=== PATIENT | male | born 1995 | race Caucasian/White ===

== ENCOUNTER 2024-01-26 20:28 | Emergency (ER) | payer OTHER, SELFPAY ==
[2024-01-26 20:44] VITALS: BP 157/82; PULSE 100; RESP 18; TEMP 37.3; O2SAT 99; BMI 42.0
[2024-01-26 21:44] LABS: Strep Grp A by PCR Rapid Positive (Negative)
[2024-01-26 22:18] VITALS: BP 137/73; PULSE 87; RESP 18; TEMP 37.6; O2SAT 98
[2024-01-26] MEDS: IBUPROFEN 400 MG TABLET 800 MG PO (22:28)
[2024-01-27 00:50] VITALS: BP 155/89; PULSE 87; RESP 20; O2SAT 97
--- NOTE | 2024-01-27 02:15 | ED.GENADULT ---
HPI - General Adult General Chief complaint: Dental/Oral Stated complaint: rt sided jaw pain, throat pain Time Seen by Provider: 01/27/24 01:30 Source: patient Mode of arrival: Ambulatory Limitations: no limitations History of Present Illness HPI narrative: 28-year-old male reports no medical issues presents with complaint of sore throat, some cough with postnasal drip, and subjective fevers for the past several days. Patient states no chest pain no shortness of breath no nausea or vomiting. Patient states allergic to tetracycline. Denies any daily prescription medications. Uses tobacco, occasional alcohol, no recreational drugs. Related Data Previous Rx's Medication Instructions Recorded amoxicillin 500 mg tablet 500 mg PO TID 10 days #30 tabs 01/27/24 Allergies Allergy/AdvReac Type Severity Reaction Status Date / Time Tetracyclines Allergy Severe Hives Verified 01/26/24 20:50 Review of Systems Review of Systems ROS Unobtainable: All systems reviewed & are unremarkable except as noted in HPI and below Patient History Social History Smoking Status: Current every day smoker Smoking Status: Current every day smoker tobacco type: vaping alcohol intake frequency: holidays/special occasions only Substance Use Type: does not use Exam Narrative Exam Narrative: GEN: Obese male, alert and oriented x 3, patient appears to be in mild distress. Nontoxic. HEENT: Atraumatic, pupils are equal round reactive to light, extraocular movements are intact, nares are clear, TMs are clear with no fluid, there is no conjunctival pallor. Throat is erythematous with bilateral tonsillar enlargement, no exudates, uvula is midline, mild bilateral cervical lymphadenopathy. No stridor, no difficulty swallowing secretions. No muffled voice. HEART: Regular rate and rhythm without murmur, clicks, rubs. LUNGS:Lungs clear to auscultation, no wheezes, rales, crackles, chest moves symmetrically ABD:bowel sounds normal, soft, non-tender, no guarding, rebound, rigidity, no masses noted, no hepatosplenomegaly MSCL: Full range of motion. NEURO:CN 2-12 intact, sensation normal SKIN: No rash, erythema or other skin changes. Initial Vital Signs Initial Vital Signs: Vital Signs Temperature 99.1 F 01/26/24 20:44 Pulse Rate 100 H 01/26/24 20:44 Respiratory Rate 18 01/26/24 20:44 Blood Pressure 157/82 H 01/26/24 20:44 Pulse Oximetry 99 01/26/24 20:44 Oxygen Delivery Method Room Air 01/26/24 20:44 Course Orders Ordered: ED Orders 01/26/24 20:45 Strep Grp A by PCR Rapid Stat Throat Culture Stat Discontinued Medications Amoxicillin (Amoxicillin 250 Mg Capsule) 500 mg PO NOW ONE Stop: 01/27/24 02:18 Last Admin: 01/27/24 02:32 Dose: 500 mg Documented By: CHARLA Ibuprofen (Ibuprofen 400 Mg Tablet) 800 mg PO NOW ONE Stop: 01/26/24 22:22 Last Admin: 01/26/24 22:28 Dose: 800 mg Documented By: AB Vital Signs Vital signs: Vital Signs - 8 hr 01/26/24 20:44 01/26/24 22:18 01/27/24 00:50 Temperature 99.1 F 99.7 F H Pulse Rate 100 H 87 87 Respiratory Rate 18 18 20 Blood Pressure 157/82 H 137/73 155/89 H Pulse Oximetry 99 98 97 Oxygen Delivery Method Room Air Room Air Room Air 01/27/24 02:25 01/27/24 02:30 01/27/24 02:31 Temperature Pulse Rate 79 75 75 Respiratory Rate Blood Pressure Pulse Oximetry 95 95 95 Oxygen Delivery Method Room Air 01/27/24 02:31 Temperature Pulse Rate Respiratory Rate Blood Pressure 136/73 Pulse Oximetry Oxygen Delivery Method Medical Decision Making Lab Data Labs: Lab Results 01/26/24 Range/Units 20:45 Group A Strep (PCR) Positive H (Negative) MDM Narrative Medical decision making narrative: 28-year-old male with symptoms consistent with pharyngitis, patient's positive on rapid strep. Was given 1st dose of amoxicillin here we will send prescription to pharmacy. Return precautions. Discharge Plan Departure Patient Disposition: Home Clinical Impression: Strep pharyngitis Instructions: DI for Strep Throat Activity Restrictions/Additional Instructions: Follow up as needed. You did test positive for strep today. This is a bacterial infection, take antibiotics until gone. Most individuals tend to feel some improvement after 24-48 hours of antibiotics. Prescription sent to [facility] in [place]. Can take Tylenol up to a 1000 mg every 6 hours and/or ibuprofen up to 600 mg every 6 hours as needed for pain and/or fever. Please return if you are having rapidly worsening symptoms, unable to swallow your saliva or secretions, muffled voice, rash or skin changes, persistent vomiting, lightheadedness or passing out or other new or concerning changes. Prescriptions: New amoxicillin 500 mg tablet 500 mg PO TID 10 Days Qty: 30 0RF Stand Alone Forms: Patient Portal/API
[2024-01-27 02:25] VITALS: PULSE 79; O2SAT 95
[2024-01-27 02:30] VITALS: PULSE 75; O2SAT 95
[2024-01-27 02:31] VITALS: BP 136/73; PULSE 75; O2SAT 95
[2024-01-27] MEDS: AMOXICILLIN 250 MG CAPSULE 500 MG PO (02:32)
== END 2024-01-27 02:52 | disposition home or self-care (01) ==
PROVIDERS: Emergency Provider Emergency Medicine
DX: J02.0 Streptococcal pharyngitis (principal); F17.290 Nicotine dependence, other tobacco product, uncomplicated
CPT/HCPCS: 87070; 87651; 99283